=== PATIENT | female | born 1960 | race Caucasian/White ===

== ENCOUNTER 2024-04-06 05:38 | Emergency (ER) | payer MEDICARE ==
[2024-04-06] MEDS ORDERED: Dexamethasone 10 MG/ML VIAL ONE (06:05)
== END 2024-04-06 06:25 | disposition home or self-care (01) ==
LOC: CSHERS 05:38
DX: J03.90 Acute tonsillitis, unspecified (principal); I10 Essential (primary) hypertension; E03.9 Hypothyroidism, unspecified; Z79.82 Long term (current) use of aspirin
CPT/HCPCS: 96372; 99282; J1100